=== PATIENT | female | born 1995 | race American Indian/Alaskan Native ===

== ENCOUNTER 2022-01-08 08:56 | Emergency (ER) | payer SELFPAY ==
--- NOTE | 2022-01-08 11:17 | Emergency Department Report ---
ED General Adult HPI - General Chief complaint: Extremity Injury, Lower Stated complaint: KNEE PAIN,PELVIC PAIN, Time Seen by Provider: 01/08/22 11:16 Source: patient Mode of arrival: Ambulatory Limitations: No Limitations - History of Present Illness Initial comments: 26 YO COMES TO ER WITH B KNEE PAIN FOR MONTHS HAS NOT SEEN PCP NO CALF SWELLING SHE DOES HAVE RASH BELOW KNEE WHICH SHE STATES IS FROM PIKE NO SOB NO CP NO FEVER NO TRAUMA -: Gradual, month(s) Location: lower extremity Severity scale (0 -10): 3 Quality: aching Consistency: constant Improves with: none Worsens with: none Associated Symptoms: denies other symptoms Treatments Prior to Arrival: none - Related Data Previous Rx's Medication Instructions Recorded Last Taken Type Ibuprofen [Motrin] 800 mg PO Q8HR PRN #30 tablet 01/08/22 Unknown Rx Allergies Allergy/AdvReac Type Severity Reaction Status Date / Time No Known Allergies Allergy Verified 01/08/22 09:10 ED Review of Systems ROS: Stated complaint: KNEE PAIN,PELVIC PAIN, Other details as noted in HPI Comment: All other systems reviewed and negative ED Past Medical Hx - Past Medical History Previous Medical History?: No - Surgical History Past Surgical History?: No - Family History Family history: no significant - Social History Smoking Status: Never Smoker Substance Use Type: None - Medications Home Medications: Home Medications Medication Instructions Recorded Confirmed Last Taken Type Ibuprofen [Motrin] 800 mg PO Q8HR PRN #30 tablet 01/08/22 Unknown Rx ED Physical Exam - General Limitations: No Limitations General appearance: alert, in no apparent distress - Head Head exam: Present: atraumatic, normocephalic - Eye Eye exam: Present: normal appearance - ENT ENT exam: Present: mucous membranes moist - Neck Neck exam: Present: normal inspection - Respiratory Respiratory exam: Present: normal lung sounds bilaterally. Absent: respiratory distress - Cardiovascular Cardiovascular Exam: Present: regular rate, normal rhythm. Absent: systolic murmur, diastolic murmur, rubs, gallop - GI/Abdominal GI/Abdominal exam: Present: soft, normal bowel sounds - Extremities Exam Extremities exam: Present: normal inspection - Back Exam Back exam: Present: normal inspection - Neurological Exam Neurological exam: Present: alert, oriented X3 - Psychiatric Psychiatric exam: Present: normal affect, normal mood - Skin Skin exam: Present: warm, dry, intact, normal color, other. Absent: rash ED Course Vital Signs 01/08/22 09:07 Temperature 98.9 F Pulse Rate 88 Respiratory 12 Rate Blood Pressure 110/68 [Right] O2 Sat by Pulse 100 Oximetry ED Medical Decision Making - Medical Decision Making A/C KNEE PAIN NO HX ARTHRITIS PAIN CO FOR CHRONIC ARTHRITIS DISCUSSED WITH PT SHE KNOWS OF NO FAMILY HX NO FEVER NO SYSTEMIC SYMPTOMS NO TRAUMA NEURO VASC INTACT NO SWELLING FEET WARM NORMAL PULSES AND SENSATION NO PAIN BEHIND KNEE ON PALPATION NO EFFUSION NON ILL APPEARING TAKING PO Vital Signs 01/08/22 09:07 Temperature 98.9 F Pulse Rate 88 Respiratory 12 Rate Blood Pressure 110/68 [Right] O2 Sat by Pulse 100 Oximetry PT WILL DC HOME WITH OTC TREATMENT AND PCP/RHEUM FOLLOW UP SHE VERBALIZES UNDERSTANDING OF PLAN OF CARE - Differential Diagnosis KNEE PAIN Critical care attestation.: If time is entered above; I have spent that time in minutes in the direct care of this critically ill patient, excluding procedure time. ED Disposition Clinical Impression: Chronic knee pain Disposition: 01 HOME / SELF CARE / HOMELESS Is pt being admited?: No Does the pt Need Aspirin: No Condition: Stable Instructions: Chronic Knee Pain, Adult, [id number] Additional Instructions: MOTRIN FOR PAIN FOLLOW UP WITH PCP WE DISCUSSED REFERRAL BELOW Prescriptions: Ibuprofen [Motrin] 800 mg PO Q8HR PRN #30 tablet PRN Reason: Pain, Moderate (4-6) Referrals: HARINDER HODGES MD [Staff Physician] - 3-5 Days JOCE SEGURA MD [Staff Physician] - 3-5 Days Forms: Work/School Release Form(ED) Time of Disposition: 11:18
[2022-01-08 11:41] VITALS: BP 114/66
== END 2022-01-08 11:45 | disposition home or self-care (01) ==
LOC: ED 08:56
DX: G89.29 Other chronic pain (principal); M25.561 Pain in right knee; M25.562 Pain in left knee; M19.90 Unspecified osteoarthritis, unspecified site; Z79.899 Other long term (current) drug therapy
CPT/HCPCS: 99282